=== PATIENT | female | born 1995 | race Caucasian/White ===

== ENCOUNTER 2018-12-03 16:24 | Emergency (ER) | payer SELFPAY ==
--- NOTE | 2018-12-03 16:54 | ED Physician Chart ---
ED Chief Complaint/HPI - Patient Information Date Seen:: 12/03/18 Time Seen:: 16:50 Chief Complaint:: sore throat History of Present Illness:: 23 yr old female with hx of sore throat for 3 mos with pain and some cough no fever no nvd period ok Allergies:: Allergies Allergy/AdvReac Type Severity Reaction Status Date / Time No Known Allergies Allergy Verified 12/03/18 16:38 Vitals:: Vital Signs - 8 hr 12/03/18 16:35 Temp 98.1 F HR 105 RR 16 BP 113/55 O2 Sat % 98 ED Review of Systems - Review of Systems General/Constitutional: No fever Skin: No skin lesions Head: No headache Eyes: No loss of vision ENT: No earache Neck: No neck pain GI: No vomiting G/U: No dysuria Musculoskeletal: No bone or joint pain Endocrine: No polyuria Psychiatric: No prior psych history, No anxiety Hematopoietic: No bruising Allergic/Immuno: No urticaria Neurological: No syncope ED Past Medical History - Past Medical History Past Medical History: No significant medical hx Family Medical History - Family Member Mother History Unknown: Yes ED Physical Exam - Physical Examination General/Constitutional: Well-developed, well-nourished Head: Atraumatic Eyes: Lids, conjuctiva normal Skin: Nl inspection ENMT: External ears, nose nl Neck: Nontender Respiratory: Nl effort/Exclusion Cardio Vascular: RRR GI: No tenderness/rebounding/guarding : No CVA tenderness Extremities: No tenderness or effusion Neuro/Psych: Alert/oriented Misc: Normal back ED Septic Shock - . Is Septic Shock (SBP<90, OR Lactate>4 mmol\L) present?: No - <6hrs of presentation: Vital Signs: Vital Signs - 8 hr 12/03/18 16:35 Temp 98.1 F HR 105 RR 16 BP 113/55 O2 Sat % 98 ED Reassessment (Disposition) - Reassessment Reassessment:: tonsillitis - Diagnosis Diagnosis:: tonsillitis - Aftercare/Follow up Instructions Aftercare/Follow-Up Instructions:: Counseled pt regarding lab results/diagnosis & need follow up Medication Prescribed:: zpack - Patient Disposition Discharge/Transfer:: Home Condition at Disposition:: Stable
== END 2018-12-03 17:03 | disposition home or self-care (01) ==
LOC: ER 16:24
DX: J03.90 Acute tonsillitis, unspecified (principal)
CPT/HCPCS: Z7502